=== PATIENT | female | born 1965 | race Caucasian/White ===

== ENCOUNTER → 2018-01-17 | Outpatient (REF) ==
[~2018-01-17] MED LIST: ACHYD1T PO; BUPR300T; BUPR300T43 PO; DCS100C PO; Estradiol PO; HYDR-89 PO; Ibuprofen PO; LEVO125T66 PO; LOSA1TAB20 PO
--- NOTE | 2018-01-17 14:21 | Diagnostic Imaging Report ---
Clinical indication: Patient is getting out of her truck and may be twisted knee. Patient having knee joint pain. Exam: X-ray of the left knee, 3 views. Comparison: None. Findings: There appears to be a nondisplaced fracture of the medial tibial spine seen on the AP view. Otherwise, there is no other concern for fracture or dislocation of the left knee. There is minimal fluid in the left knee joint region. There is minimal spurring of the medial an patellofemoral compartments. Impression: 1: There appears to be a nondisplaced fracture of the medial tibial spines of unknown age. CT scan of the left knee would better evaluate. 2: Mild degenerative disease in left knee. Report was faxed/called to Fariha Flores by eryn at 2:21 p.m. Dictated by: Dictated on workstation # [id number]
--- NOTE | 2018-01-17 16:37 | Diagnostic Imaging Report ---
PROCEDURE: CT left knee without contrast. TECHNIQUE: Multiple contiguous axial images were obtained through the left knee without the use of intravenous contrast. Sagittal and coronal reformations were then performed. DATE: January 17, 2018. INDICATION: 53-year-old female, injury. Left knee pain. COMPARISON: Left knee radiographs, January 17, 2018. FINDINGS: There is a well corticated ossification adjacent to the tip of the medial tibial spine compatible with a long-standing finding. This potentially could reflect sequela from a prior injury. There is a small osteophyte arising from the medial aspect of the femoral notch. The medial compartment is mildly narrowed. There are small medial compartment osteophytes. Patellofemoral compartment appears mildly narrowed. There is no knee joint effusion. There is no acute fracture. CT is nondiagnostic for assessment of menisci and cruciate ligaments as well as for evaluation of additional ligaments. There is no identified sizable Sanchez's cyst. IMPRESSION: 1. No acute fracture. 2. Well-corticated ossification adjacent to the tip of the medial tibial spine which may potentially reflect sequela of remote prior injury. There is a very small osteophyte arising from the medial aspect of the femoral notch. 3. Mild medial and patellofemoral compartment osteoarthritis. No knee joint effusion. Dictated by: Dictated on workstation # [id number]
== END | disposition home or self-care (01) ==
LOC: OCC 11:09
PROVIDERS: ATTEND Nurse Practitioner Family
CPT/HCPCS: 73562; 73700

== ENCOUNTER 2019-04-01 05:36 | Outpatient (CLI) | payer BC ==
[~2019-04-01] VITALS: Ht 160 cm; Wt 86.3 kg
[2019-04-01] MEDS ORDERED: BUPR150T20 PO (10:35)
[2019-04-01] MEDS ORDERED: bp pill PO (10:35)
[2019-04-01] MEDS ORDERED: LEVO150T61 PO (10:35)
[2019-04-01] MEDS ORDERED: ESTR1TAB24 PO (10:35)
== END 2019-04-01 10:41 | disposition home or self-care (01) ==
LOC: PREOP 05:36
PROVIDERS: ATTEND Surgery
DX: Z01.818 Encounter for other preprocedural examination (principal)

== ENCOUNTER 2019-04-05 11:50 | Day surgery (SDC) | payer BC, OTHER ==
[2019-04-05] VITALS (15 sets, daily range): BP systolic 97–173; BP diastolic 52–78
[~2019-04-05] VITALS: Ht 160 cm; Wt 86.3 kg
[~2019-04-05 11:50] MED LIST changes: +BUPR150T20 PO; +ESTR1TAB24 PO; +LEVO150T61 PO; +bp pill PO
[2019-04-05] MEDS ORDERED: NS IV 500 ML 500 ML IV PRN (12:08)
[2019-04-05] MEDS ORDERED: NS IV 500 ML 500 ML ONE (12:08)
[2019-04-05] MEDS ORDERED: fentaNYL INJECTION 100 MCG/2 ML AMP IVP ONE (12:15)
[2019-04-05] MEDS ORDERED: LIDOCAINE JELLY 2% 6 ML SYRINGE MM PRN (12:15)
[2019-04-05] MEDS ORDERED: LIDOCAINE JELLY 2% 6 ML SYRINGE ONE (13:21)
[2019-04-05] MEDS ORDERED: fentaNYL INJECTION 100 MCG/2 ML AMP ONE ×2 (13:21→14:09)
[2019-04-05] MEDS ORDERED: MIDAZOLAM 5 MG/5 ML (VERSED) VIAL ONE ×2 (13:21)
--- NOTE | 2019-04-05 13:54 | Conscious Sedation/ASA ---
Conscious Sedation Pre-Proced Time 13:00 ASA Score 2 For ASA 3 and 4: Consider anesthesia and medical clearance. Also, for patients with a history of failed moderate sedation consider anesthesia. Airway Lungs Heart ASA score ASA 1: a normal healthy patient ASA 2: a patient with a mild systemic disease (mid diabetes, controlled hypertension, obesity ASA 3: a patient with a severe systemic disease that limits activity (angina, COPD, prior Myocardial infarction) ASA 4: a patient with an incapacitating disease that is a constant threat to life (CHF, renal failure) ASA 5: a moribund patient not expected to survive 24 hrs. (ruptured aneurysm) ASA 6: a declared brain- patient whose organs are being harvested. For emergent operations, add the letter E after the classification Mallampati Classification Grade 2 Sedation Plan Analgesia, Amnesia, Plan communicated to team members, Discussed options with patient/fam, Discussed risks with patient/fam The patient is an appropriate candidate to undergo the planned procedure, sedation, and anesthesia. The patient immediately re-assessed prior to indication. BRYAN RIVERA MD Apr 05, 2019 13:54 POS
[2019-04-05] MEDS: MIDAZOLAM 5 MG/5 ML (VERSED) VIAL IV PRN ×4 (13:55→14:15)
--- NOTE | 2019-04-05 13:55 | Progress Note-Pre Operative ---
Pre-Operative Progress Note H&P Reviewed The H&P was reviewed, patient examined and no changes noted. Date Seen by Provider: Apr 05, 2019 Time Seen by Provider: 13:00 Date H&P Reviewed: Apr 05, 2019 Time H&P Reviewed: 13:00 Pre-Operative Diagnosis: screening o BRYAN RIVERA MD Apr 05, 2019 13:55 POS
--- NOTE | 2019-04-05 13:56 | Discharge Inst-Surgical ---
D/C Lap Instructions-MIGUEL Follow Up Activity as tolerated High Fiber Diet 25g or more per day Avoid Alcohol, Caffeine, Spicy Aurora and Acid foods. Drink 64 fluid oz or more of fluids per day. Symptoms to Report: Fever over 101 degree F, Nausea/Vomiting If any problems/questions: Contact your physician or go to Emergency Room BRYAN RIVERA MD Apr 05, 2019 13:56 POS
[2019-04-05] MEDS ORDERED: ACETAMINOPHEN 325 MG TABLET PO PRN (14:00)
[2019-04-05] MEDS ORDERED: morphine INJ 10 MG/ML 1ML (SYR OR VIAL) IVP PRN ×2 (14:00)
[2019-04-05] MEDS ORDERED: ONDANSETRON 4 MG/2 ML (SDV) Z0FRAN IVP PRN (14:00)
[2019-04-05] MEDS ORDERED: HYDROcodone/APAP 5 MG/325 MG (LORTAB) TAB PO PRN (14:00)
--- NOTE | 2019-04-05 14:33 | Progress Note-Post Operative ---
Post-Operative Progess Note Surgeon (s)/Food Tester (s) Surgeon BRYAN RIVERA MD Food Tester: none Pre-Operative Diagnosis screening colo Post-Operative Diagnosis chronic stage 2 ext and int hemorrhoids, mild sigmoid diverticulosis. Procedure & Operative Findings Date of Procedure 04/05/19 Procedure Performed/Findings colonoscopy Anesthesia Type cs Estimated Blood Loss Estimated blood loss (mL): minimal Specimens/Packing Specimens Removed none BRYAN RIVERA MD Apr 05, 2019 14:33 POS
--- NOTE | 2019-04-05 21:04 | OPERATIVE REPORT ---
DATE OF SERVICE: 04/05/2019 ATTENDING PRIMARY CARE PHYSICIAN: Yadi Danielle DO PREOPERATIVE DIAGNOSIS: Screening colonoscopy with family history of colon cancer. POSTOPERATIVE DIAGNOSIS: Mild chronic stage I external and internal hemorrhoids, mild sigmoid diverticulosis. PROCEDURE: Colonoscopy. SURGEON: Bryan Rivera MD ANESTHESIA: Conscious sedation. ESTIMATED BLOOD LOSS: Minimal. FINDINGS: Mild chronic stage I external and internal hemorrhoids, mild sigmoid diverticulosis. DISPOSITION: The patient tolerated the procedure well. INDICATIONS: The patient is a 54-year-old female in need of a followup screening colonoscopy. Her last colonoscopy in 2011 where she was found to have a small hyperplastic polyp of the sigmoid colon as well as a mild diverticulosis. She does report a family history of colon cancer with her sister being diagnosed with the disease at age 42. She does not report any major issues with diarrhea nor constipation as well as no red blood per rectum nor any dark tarry stools. DESCRIPTION OF PROCEDURE: The patient was brought to the endoscopy suite, laid in the left lateral decubitus position. After adequate IV pain and sedative medications and conscious sedation anesthesia, a digital rectal examination was performed. Chronic stage I external and internal hemorrhoids were identified, which were not actively edematous nor inflamed and no bleeding. Normal sphincter tone was felt and there were no palpable masses. The endoscope was then intubated into the anus and rectum gently insufflated. The endoscope was then advanced to the valves of Aquino of the rectum with no polyps or any neoplasms identified. The endoscope was then advanced to the remainder of the descending, transverse and ascending colon to the cecum. These segments were normal. There were no polyps or any neoplasms identified. There was a mild sigmoid diverticulosis of the sigmoid colon; however, no signs of any diverticulitis. The endoscope was then slowly withdrawn while taking a second look and suctioning of residual air with no additional findings. The patient tolerated the procedure well. We will recommend conservative therapy with a high fiber diet with at least 25 grams of fiber daily as well as significant amounts of water to promote soft stools on a daily basis. She does not need another colonoscopy for another 5 years. Job ID: [id number] DocumentID: [id number] Dictated Date: 04/05/2019 14:27:11 Online Project Manager Date: 04/05/2019 21:04:26 Dictated By: BRYAN RIVERA MD
== END 2019-04-05 15:10 | disposition home or self-care (01) ==
LOC: ENDO 11:50
PROVIDERS: ATTEND Surgery
DX: Z12.11 Encounter for screening for malignant neoplasm of colon (principal); K64.0 First degree hemorrhoids; K64.8 Other hemorrhoids; K57.30 Diverticulosis of large intestine without perforation or abscess without bleeding; I10 Essential (primary) hypertension; F41.9 Anxiety disorder, unspecified; Z90.710 Acquired absence of both cervix and uterus; Z86.010 Personal history of colon polyps; Z79.899 Other long term (current) drug therapy; Z90.89 Acquired absence of other organs; Z80.0 Family history of malignant neoplasm of digestive organs; Z82.49 Family history of ischemic heart disease and other diseases of the circulatory system

== ENCOUNTER → 2019-05-24 | Outpatient (CLI) | payer OTHER ==
--- NOTE | 2019-05-27 09:00 | Diagnostic Imaging Report ---
INDICATION: Routine screening. COMPARISON: 12/31/2015. TECHNIQUE: 2D and 3D bilateral screening mammography was performed with CAD. FINDINGS: Scattered fibroglandular densities are identified bilaterally. The parenchymal pattern is stable. No mass or malignant appearing microcalcifications are seen. The axillae are unremarkable. IMPRESSION: No mammographic features suspicious for malignancy are identified. ACR BI-RADS Category 1: Negative. Result letter will be mailed to the patient. Note: At least 10% of breast cancer is not imaged by mammography. Dictated by: Dictated on workstation # [id number]
== END ==
LOC: RAD 14:53
PROVIDERS: ATTEND Nurse Practitioner Family
DX: Z12.31 Encounter for screening mammogram for malignant neoplasm of breast (principal)
CPT/HCPCS: 77067

== ENCOUNTER → 2021-10-05 | Outpatient (CLI) | payer OTHER ==
[~2021-10-05] MED LIST changes: -BUPR150T20 PO; +BUPR150T28 PO
--- NOTE | 2021-10-05 18:20 | Diagnostic Imaging Report ---
INDICATION: Routine screening. COMPARISON is made with prior mammograms from 05/24/2019 and 12/31/2015. 2-D and 3-D bilateral screening mammography was performed with CAD. Scattered fibroglandular densities are identified bilaterally. Circumscribed density in the far posterior left breast appears stable. There is a density in the left breast MLO view mid depth which is at the nipple line. This appears to be laterally located on the tomographic images but not well-seen on the CC view. Additional views are recommended. Right breast is unremarkable. No suspicious calcifications are seen. Axillae are unremarkable. IMPRESSION: BI-RADS 0 Left breast density. Additional views are recommended for further evaluation. ACR BI-RADS Category 0: Incomplete. (Needs additional imaging evaluation). Result letter will be mailed to the patient. Note: At least 10% of breast cancer is not imaged by mammography. Dictated by: Dictated on workstation # [id number]
== END ==
LOC: RAD 15:29
PROVIDERS: ATTEND Family Medicine
DX: Z12.31 Encounter for screening mammogram for malignant neoplasm of breast (principal)
CPT/HCPCS: 77063; 77067

== ENCOUNTER → 2021-10-14 | Outpatient (CLI) | payer OTHER ==
--- NOTE | 2021-10-14 14:38 | Diagnostic Imaging Report ---
INDICATION: Left breast density. Patient presents for additional views. Correlation is made with prior screening mammogram from 10/05/2021. Unilateral left 2-D and 3-D diagnostic mammography was performed. This includes spot compression, ML and conventional 90 degrees lateral views. Additional views show some mild persistent nodularity just below the nipple line on the spot compression ML view and appears to be laterally located on the tomographic images. No definite density on the conventional 90 degree lateral view is seen. No suspicious microcalcifications are seen. IMPRESSION: BI-RADS 0 Persistent density in the left breast, as described. Further evaluation with ultrasound is recommended and will be performed today. ACR BI-RADS Category 0: Incomplete. (Needs additional imaging evaluation). Result letter will be mailed to the patient. Note: At least 10% of breast cancer is not imaged by mammography. Dictated by: Dictated on workstation # [id number]
--- NOTE | 2021-10-14 20:42 | Diagnostic Imaging Report ---
INDICATION: Left breast density. COMPARISON: Correlation is made with the diagnostic mammogram from earlier the same day and screening mammogram from 10/05/2021. EXAMINATION: Sonographic interrogation of the lower outer left breast was performed. FINDINGS: Mixed echogenicity of circumscribed nodule at the 5:30 location of left breast, 2 cm from the nipple, is noted measuring 7 mm x 3 mm x 7 mm. This may represent a tiny cluster of cysts. This may account for the mammographic density. No other sonographic abnormalities are identified. IMPRESSION: Probable tiny cluster of cysts at the 5:30 location left breast, 2 cm from the nipple. This may account for the mammographic density. Even so, follow-up left mammogram and left breast ultrasound in six months is recommended to show continued stability. ACR BI-RADS Category 3: Probably benign findings. Result letter will be mailed to the patient. Note: At least 10% of breast cancer is not imaged by mammography. Dictated by: Dictated on workstation # [id number]
== END ==
LOC: RAD 14:15
PROVIDERS: ATTEND Family Medicine
DX: N64.89 Other specified disorders of breast (principal)
CPT/HCPCS: 76642; 77065; G0279

== ENCOUNTER → 2022-04-11 | Outpatient (CLI) | payer OTHER ==
--- NOTE | 2022-04-11 13:26 | Diagnostic Imaging Report ---
INDICATION: Six-month followup left breast density. COMPARISON: Correlation is made to the prior mammograms of 10/05/2021 and 05/24/2019. TECHNIQUE: Unilateral left 2D and 3D diagnostic mammography was performed. FINDINGS: Scattered fibroglandular densities in the left breast are noted. There is residual density in the lower aspect of the left breast, stable when compared with the prior exam. No new mass is detected. No malignant-appearing microcalcifications are seen. IMPRESSION: Stable left mammogram. Even so, a followup ultrasound of the area of probable cyst in the lower outer left breast is recommended and will be performed today. ACR BI-RADS Category 0: Incomplete. (Needs additional imaging evaluation). Result letter will be mailed to the patient. Note: At least 10% of breast cancer is not imaged by mammography. Dictated by: Dictated on workstation # [id number]
--- NOTE | 2022-04-11 20:25 | Diagnostic Imaging Report ---
INDICATION: Six-month follow-up left breast nodules. CORRELATION is made with prior left breast ultrasound from 10/14/2021. Sonographic interrogation of the lower outer left breast at the 5:30 location, 2 cm from the nipple was performed. Probable tiny cluster is again noted measuring smaller in size at 5 mm x 2 mm x 3 mm compared with 7 mm x 3 mm x 7 mm on prior exam. No internal vascularity is seen. No new mass is detected. IMPRESSION: BI-RADS Category 2. Decrease in size of probable tiny cluster at the 5:30 location of the left breast when compared with the exam of 6 months earlier. Patient may return to routine annual screening mammography. ACR BI-RADS Category 2: Benign findings. Result letter will be mailed to the patient. Note: At least 10% of breast cancer is not imaged by mammography. Dictated by: Dictated on workstation # [id number]
== END ==
LOC: RAD 12:24
PROVIDERS: ATTEND Family Medicine
DX: N63.20 Unspecified lump in the left breast, unspecified quadrant (principal)
CPT/HCPCS: 76642; 77065; G0279